=== PATIENT | male | born 1930 | race Caucasian/White ===

== ENCOUNTER 2018-08-29 18:10 | Inpatient (IN) | payer OTHER ==
--- NOTE | 2018-08-29 18:31 | EDPHY ---
HPI/HX/ROS/PE/MDM Narrative: CHIEF COMPLAINT: Shortness of breath, growing mass over neck HPI: The patient is an 87 y/o male arriving with his son complaining of shortness of breath related to a growing mass over his neck. He was diagnosed with metastatic colorectal cancer by biopsy that has been aggressively spreading around his neck over the last month. The patient and his care team in [place] initially determined he would start hospice, then there was discussion to proceed with palliative radiation treatment instead. No therapy has been started yet due to missed appointments and claustrophobia. His son moved him here from [place] three days ago to live with him permanently while undergoing treatment and/or hospice care. His son has already transferred records and scheduled an appointment with a local radiation oncologist to see "if there's anything radiation could do at this point." The mass has been growing and his son says "this thing has been growing dramatically over the last couple days" from "small golfball-sized lump" a few months ago that has now enlarged significantly and is over his larynx. The patient is having difficulty breathing and eating. His son reports he has only consumed about 500 calories in the last [address] in [place] last month showed no airway constriction. History obtained primarily from patient's son. REVIEW OF SYSTEMS: A comprehensive 10 system review of systems is otherwise negative aside from elements mentioned in the history of present illness. PMH: Metastatic colorectal cancer SOCIAL HISTORY: Lived independently in [place], [place], arrived here 3 days ago and now living with his son locally. PHYSICAL EXAM: General:Patient is alert, in no acute distress. ENT:Eyes are normal to inspection. ENT inspection normal. Neck: Enormous right anterior mass pushing trachea to the side. Respiratory:No respiratory distress. Breath sounds normal bilaterally. Cardiovascular: Regular rate and rhythm. Strong peripheral pulses. Normal cap refill. Abdomen:The abdomen is nontender to palpation. There are no peritoneal signs. Back: Normal to inspection. No tenderness to palpation. Skin: Normal color. No rash. Warm and dry. Extremities: Normal appearance. Full range of motion. Neuro: Oriented x3. Normal motor function. Normal sensory function. ED Course: This is an 87 y/o male with aggressive metastatic colorectal cancer with a rapidly growing mass over his neck that is now causing difficulty eating and breathing. He has not received treatment for this yet, though son is setting up palliative radiation treatment appointments. Plan for IV, labs, admission, and oncology consultation. 1L IV NS ordered. 183: Consulted with Dr. King, oncology. He will consult during admission. Spoke with hospitalist service. Dr. Lai accepts admission. - Data Points Laboratory Results: Laboratory Results 08/29/18 18:38 08/29/18 18:38 08/29/18 08/29/18 18:38 18:38 WBC 13.63 10^3/uL H 10^3/uL (3.80-9.50) RBC 4.61 10^6/uL 10^6/uL (4.40-6.38) Hgb 15.0 g/dL g/dL (13.7-17.5) Hct 45.0 % % (40.0-51.0) MCV 97.6 fL fL (81.5-99.8) MCH 32.5 pg pg (27.9-34.1) MCHC 33.3 g/dL g/dL (32.4-36.7) RDW 14.6 % % (11.5-15.2) Plt Count 237 10^3/uL 10^3/uL (150-400) MPV 9.9 fL fL (8.7-11.7) Neut % (Auto) 76.7 % H % (39.3-74.2) Lymph % (Auto) 10.9 % L % (15.0-45.0) [place] % (Auto) 6.7 % % (4.5-13.0) Eos % (Auto) 4.7 % % (0.6-7.6) Baso % (Auto) 0.6 % % (0.3-1.7) Nucleat RBC Rel Count 0.0 % % (0.0-0.2) Absolute Neuts (auto) 10.46 10^3/uL H 10^3/uL (1.70-6.50) Absolute Lymphs (auto) 1.48 10^3/uL 10^3/uL (1.00-3.00) Absolute Monos (auto) 0.91 10^3/uL H 10^3/uL (0.30-0.80) Absolute Eos (auto) 0.64 10^3/uL H 10^3/uL (0.03-0.40) Absolute Basos (auto) 0.08 10^3/uL 10^3/uL (0.02-0.10) Absolute Nucleated RBC 0.00 10^3/uL 10^3/uL (0-0.01) Immature Gran % 0.4 % % (0.0-1.1) Immature Gran # 0.06 10^3/uL 10^3/uL (0.00-0.10) Sodium 141 mEq/L mEq/L (135-145) Potassium 5.0 mEq/L mEq/L (3.3-5.0) Chloride 103 mEq/L mEq/L (97-110) Carbon Dioxide 27 mEq/l mEq/l (22-31) Anion Gap 11 mEq/L mEq/L (6-14) BUN 17 mg/dL mg/dL (7-23) Creatinine 1.1 mg/dL mg/dL (0.7-1.3) Estimated GFR > 60 Glucose 90 mg/dL mg/dL (70-100) Calcium 9.3 mg/dL mg/dL (8.5-10.4) Total Bilirubin 1.4 mg/dL mg/dL (0.1-1.4) Conjugated Bilirubin 0.3 mg/dL mg/dL (0.0-0.5) Unconjugated Bilirubin 1.1 mg/dL mg/dL (0.0-1.1) AST 56 IU/L IU/L (17-59) ALT 24 IU/L IU/L (21-72) Alkaline Phosphatase 109 IU/L IU/L (38-126) Total Protein 7.3 g/dL g/dL (6.3-8.2) Albumin 3.5 g/dL g/dL (3.5-5.0) Medications Given: Discontinued Medications Sodium Chloride (Ns) 1,000 mls @ 0 mls/hr IV EDNOW ONE; Wide Open PRN Reason: Protocol Stop: 08/29/18 18:45 Last Admin: 08/29/18 18:49 Dose: 1,000 mls General Time Seen by Provider: 08/29/18 18:17 Initial Vital Signs: Initial Vital Signs Temperature (C) 36.5 C 08/29/18 18:14 Heart Rate 99 08/29/18 18:14 Respiratory Rate 18 08/29/18 18:14 Blood Pressure 107/72 08/29/18 18:14 O2 Sat (%) 93 08/29/18 18:14 O2 Delivery Mode Room Air Allergies/Adverse Reactions: No Known Allergies Allergy (Unverified 08/29/18 18:14) Home Medications: Medication Instructions Recorded NK [No Known Home Meds] 08/29/18 Departure - Departure Disposition: [facility] Inpatient Acute Clinical Impression: Metastatic colorectal cancer, Neck mass Condition: Fair Report Scribed for: Gutierrez Mejía Report Scribed by: Darlene Jennings Date of Report: 08/29/18 Time of Report: 18:56 Physician Review and Approval Statement: Portions of this note were transcribed by an ED scribe. I personally performed the history, physical exam, and medical decision making; and confirm the accuracy of the information in the transcribed note.
[2018-08-29] MEDS ORDERED: NS 1,000 ML IV ONE (18:44)
[2018-08-29 18:51] LABS: PLATELET COUNT 237 10^3/uL (150-400)
[2018-08-29] MEDS ORDERED: ONDANSETRON 4 MG/2 ML VIAL IVP PRN (20:28)
[2018-08-29] MEDS ORDERED: HYDROCODONE/APAP 5/325 TAB PO PRN (20:28)
--- NOTE | 2018-08-29 20:39 | PDGENHP ---
History and Physical - Chief Complaint large neck mass, sob - History of Present Illness 87 yo M with PMH of metastatic colon cancer with mets to lung, kidney, small intestine and neck per son's report, here for concerns of rapidly growing neck mass. Son notes that he recently had his father move here from [place] as he had been doing poorly in [place]. He was diagnosed with the cancer apparently 1 year ago, and then 6 months ago diagnosed with metastasis. Son notes that his father was trying palliative radiation for the neck mass in [place] as there were concerns with it's size and proximity to the trachea, but unfortunately he was not able to tolerate the mask he had to wear and had significant anxiety and claustrophobia. Son notes that one week ago the mass appeared about 1/2 the size it is currently and also did not appear to be highly vascular as it does now. He notes his father has been working hard to breathe at times since getting to [place], he originally thought it was due to the elevation but when it continued after several days here he became more concerned that it was due to the neck mass. Patient himself is mainly complaining of being itchy and states that he wants to go 'meet my mother and ' who are both , and states that he is ready to . He does state that he is willing to meet with the oncologist and the radiation onc doctor to see if radiation might make him more comfortable, but then forgets that he said that and states he wants to leave. History Information - Allergies/Home Medication List Allergies/Adverse Reactions: No Known Allergies Allergy (Unverified 08/29/18 18:14) Home Medications: NK [No Known Home Meds] 08/29/18 [Last Taken Unknown] I have personally reviewed and updated: family history, medical history, social history, surgical history - Past Medical History cancer (metastatic colon cancer--mets to lungs, kidney, small intestine, neck per son) - Surgical History Reports: no pertinent surgical hx - Family History Positive for: non-pertinent - Social History Smoking Status: Never smoked Alcohol Use: None Drug Use: None Additional social history: recently moved here from [place], lives with son Review of Systems Review of Systems: ROS: 10pt was reviewed & negative except for what was stated in HPI & below Physical Exam Physical Exam: Temp Pulse Resp BP Pulse Ox 36.5 C 83 16 115/74 92 08/29/18 18:14 08/29/18 20:15 08/29/18 20:15 08/29/18 20:15 08/29/18 20:15 Constitutional: chronically ill appearing, uncomfortable Eyes: PERRL, anicteric sclera Ears, Nose, Mouth, Throat: moist mucous membranes, other (large, mostly left sided lobulated, vascular mass on neck, areas of skin breakdown ) Cardiovascular: regular rate and rhythym, no murmur, rub, or gallop, No edema Respiratory: no respiratory distress, no rales or rhonchi, other (no stridor) Gastrointestinal: normoactive bowel sounds, soft, non-tender abdomen Genitourinary: no bladder tenderness Skin: warm, other (scattered erythematous, maculopapular rash and excoriations) Musculoskeletal: full muscle strength, no muscle tenderness Neurologic: AAOx3 Psychiatric: encephalopathic, flat affect, poor memory Lab Data & Imaging Review 08/29/18 18:38 08/29/18 18:38 WBC 13.63 10^3/uL (3.80-9.50) H 08/29/18 18:38 RBC 4.61 10^6/uL (4.40-6.38) 08/29/18 18:38 Hgb 15.0 g/dL (13.7-17.5) 08/29/18 18:38 Hct 45.0 % (40.0-51.0) 08/29/18 18:38 MCV 97.6 fL (81.5-99.8) 08/29/18 18:38 MCH 32.5 pg (27.9-34.1) 08/29/18 18:38 MCHC 33.3 g/dL (32.4-36.7) 08/29/18 18:38 RDW 14.6 % (11.5-15.2) 08/29/18 18:38 Plt Count 237 10^3/uL (150-400) 08/29/18 18:38 MPV 9.9 fL (8.7-11.7) 08/29/18 18:38 Neut % (Auto) 76.7 % (39.3-74.2) H 08/29/18 18:38 Lymph % (Auto) 10.9 % (15.0-45.0) L 08/29/18 18:38 [place] % (Auto) 6.7 % (4.5-13.0) 08/29/18 18:38 Eos % (Auto) 4.7 % (0.6-7.6) 08/29/18 18:38 Baso % (Auto) 0.6 % (0.3-1.7) 08/29/18 18:38 Nucleat RBC Rel Count 0.0 % (0.0-0.2) 08/29/18 18:38 Absolute Neuts (auto) 10.46 10^3/uL (1.70-6.50) H 08/29/18 18:38 Absolute Lymphs (auto) 1.48 10^3/uL (1.00-3.00) 08/29/18 18:38 Absolute Monos (auto) 0.91 10^3/uL (0.30-0.80) H 08/29/18 18:38 Absolute Eos (auto) 0.64 10^3/uL (0.03-0.40) H 08/29/18 18:38 Absolute Basos (auto) 0.08 10^3/uL (0.02-0.10) 08/29/18 18:38 Absolute Nucleated RBC 0.00 10^3/uL (0-0.01) 08/29/18 18:38 Immature Gran % 0.4 % (0.0-1.1) 08/29/18 18:38 Immature Gran # 0.06 10^3/uL (0.00-0.10) 08/29/18 18:38 Sodium 141 mEq/L (135-145) 08/29/18 18:38 Potassium 5.0 mEq/L (3.3-5.0) 08/29/18 18:38 Chloride 103 mEq/L (97-110) 08/29/18 18:38 Carbon Dioxide 27 mEq/l (22-31) 08/29/18 18:38 Anion Gap 11 mEq/L (6-14) 08/29/18 18:38 BUN 17 mg/dL (7-23) 08/29/18 18:38 Creatinine 1.1 mg/dL (0.7-1.3) 08/29/18 18:38 Estimated GFR > 60 10/29/18 18:38 Glucose 90 mg/dL (70-100) 08/29/18 18:38 Calcium 9.3 mg/dL (8.5-10.4) 08/29/18 18:38 Total Bilirubin 1.4 mg/dL (0.1-1.4) 08/29/18 18:38 Conjugated Bilirubin 0.3 mg/dL (0.0-0.5) 08/29/18 18:38 Unconjugated Bilirubin 1.1 mg/dL (0.0-1.1) 08/29/18 18:38 AST 56 IU/L (17-59) 08/29/18 18:38 ALT 24 IU/L (21-72) 08/29/18 18:38 Alkaline Phosphatase 109 IU/L (38-126) 08/29/18 18:38 Total Protein 7.3 g/dL (6.3-8.2) 08/29/18 18:38 Albumin 3.5 g/dL (3.5-5.0) 08/29/18 18:38 Assessment & Plan Assessment: Metastatic colorectal cancer (Acute) Neck mass (Acute) 87 yo M with hx of metastatic colon cancer with large mass to neck presenting with sob # metastatic colon cancer with large neck mass: given size and location of mass concern for its proximity to trachea and great vessels of neck, at this time patient does not appear to have stridor or increased wob. He is willing to discuss possibility of palliative radiation, Dr. King of oncology has been consulted by ER and will discuss with patient and son in am. Patient has not had any imaging in several months per son and given rapid growth of neck mass, concern for overall progression--will obtain ct neck/chest/abdomen in am ( patient requesting deferral to am so he can sleep) # sob: likely due to above, lungs sound clear and no stridor but mass undoubtedly exerting pressure on trachea, not hypoxic, imaging in am as above # malnutrition: BMI of 16 and patients son notes that over the last 3 days he has likely only eaten a total of 500 calories, will ask dietary to consult # goals of care: son states that he would prefer his father be a FC if it were up to him, however patient clearly states he does not want to be intubated or resuscitated and son agrees to abide by his father's wishes. Discussed option of hospice and son states he has plans to meet with them as an OP. Patient new to my care. Care plan reviewed with ER doctor. Further hx obtained from patients son present at bedside. Old records requested.
[2018-08-29] MEDS: ACETAMINOPHEN 325 MG TAB PO PRN (22:07)
[2018-08-29] MEDS: diphenhydrAMINE 25 MG CAP PO PRN (22:07)
[2018-08-29] MEDS: MELATONIN 3 MG TAB PO SCH (22:07)
[2018-08-29] MEDS ORDERED: hydrOXYzine HCL 25 MG TAB PO ONE (23:38)
[2018-08-30 04:47] LABS: PLATELET COUNT 211 10^3/uL (150-400)
--- NOTE | 2018-08-30 08:40 | PDMN ---
Medical Necessity Medical necessity: MCG: [facility] oncology - pt with increasing difficulty breathing , poor appetite, met. colon ca with mets to lung, kidney, sm. intestine and neck - with progressive rapidly growing neck mass concern with proximity to trachea. oncology consult pend. - anticipate > 2 [place] ongoing med nec care, further eval and tx.
--- NOTE | 2018-08-30 08:59 | GCON ---
HISTORY OF PRESENT ILLNESS: The patient is an 87-year-old gentleman who carries a diagnosis of metastatic colon cancer. I have limited medical records , but per his son, he has metastasis to lung, kidney, small intestine, and neck. My understanding is he has had surgery on his primary a year or so ago.. He recently came from [place] to live with his son because he was doing poorly. The biggest issue is a rapidly growing neck mass. He came to the ER last night and was admitted. He is having some issues with breathing and has general pruritus. He has lost some weight, but is able to swallow. We were consulted to consider the issue of possible palliative radiation therapy to his neck. PAST MEDICAL HISTORY: Primarily positive for the colon cancer. FAMILY HISTORY: Noncontributory. SOCIAL HISTORY: He is a nonsmoker. REVIEW OF SYSTEMS: Positive for pruritus and some shortness of breath. PHYSICAL EXAMINATION: GENERAL: Today, he is an elderly male, but is ambulatory. VITAL SIGNS: Blood pressure 98/65, O2 saturation 90% on 2 L. He is afebrile. HEENT: He is not icteric. NECK: He has a very large, probably 8 x 6 cm mass involving the left side of his neck. There is a scab in the middle. LUNGS: Generally clear. CARDIAC: Unremarkable. ABDOMEN: Normal bowel sounds and is nontender. EXTREMITIES: No edema. LABORATORY DATA: White count is 11,000, hemoglobin 13.4, hematocrit 40.2, platelets 211,000. Chemistry panel is unremarkable. IMPRESSION: We have somewhat limited data, but history is consistent with colon cancer, probably metastasizing through the lymphatic system into the neck. There is a large neck mass, which has the potential to cause airway obstruction. I think it might be reasonable to consider palliative radiation therapy to this area, which may result in some shrinkage. 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 It might be worth trying nonsedating antihistamines as an initial trial. Skin moisturizing and Dermatology consultation may be indicated as well. I have discussed the case with Dr. Monahan of Radiation therapy. Certainly, a Palliative Care conference and a Hospice consult are indicated as well. /[id number]/MODL MTDD
--- NOTE | 2018-08-30 10:55 | ASMTCMCOM ---
CM Note CM Note Notes: Chart reviewed Patient is an 87 year old male admitted via ED with concerns of increasing size of neck mass and possible interference with airway. He has been diagnosed with cancer for one year. He recently vp product here from [place] to be with his son, Oncology saw and has ordered radiation therapy to help reduce the size of the mass. [facility] is seeing the son in consultation for consideration of palliative care versus hospice care. CM to follow for needs, Plan: TBD Date Signed: 08/30/2018 10:54 AM Electronically Signed By:Brianna Davis RN
[2018-08-30] MEDS ORDERED: PNEUMOC 13-VAL CONJ-DIP CRM/PF 0.5 ML SYR IM ONE (11:25)
--- NOTE | 2018-08-30 13:38 | ASMTCMCOM ---
CM Note CM Note Notes: Patient plan of care reviewed in rounds. This 87 year old gentleman recently relocated from [place] to the [place] area to live with his son. He is admitted with a diagnosis of colon cancer with metastatic disease to his lymph system resulting in a large neck mass. The concern is that the mass may be occlusive to his airway. He wishes to be a DNR. He per the son lost his in November. He has been pretty fatigued and mostly bed bound and the son has hired private care givers for assistance They also met with [facility] today and the patient is agreeable to 10 palliative radiation treatments, I also discussed HHC with the patient's son Davi as an additional layer of care. Plan: Likely to dc to son's home with HHC, palliative and private caregivers. Date Signed: 08/30/2018 01:37 PM Electronically Signed By:Brianna Davis RN
[2018-08-30] MEDS: oxyCODONE IR 5 MG TAB PO PRN (14:17)
--- NOTE | 2018-08-30 16:59 | HOSPPROG ---
Hospitalist Progress Note Assessment/Plan: * Massive neck mass - rapidly expanding - likely met from colon cancer -start XRT -currently no evidence for airway compromise * Metastatic colon cancer -CT neck/chest/abd/pelvis pending * Pruritis -oncology suspects paraneoplastic -anti-histamines * Poor po intake -start IVF Subjective: No new complaints, okay to swallow and breath Objective: Vital Signs Temp Pulse Resp BP Pulse Ox 36.6 C 85 20 101/81 H 99 08/30/18 16:01 08/30/18 16:01 08/30/18 16:01 08/30/18 16:01 08/30/18 16:01 Laboratory Results 08/30/18 04:20 08/30/18 04:20 08/29/18 08/30/18 08/31/18 05:59 05:59 05:59 Intake Total [address] King and Dr. serrato - patient would like to try XRT but did meet with [facility] this am CT chest/abd/pelvis and neck ordered and pending - Physical Exam Constitutional: no apparent distress, uncomfortable, other (very large massive neck mass protruding from right neck ) Cardiovascular: regular rate and rhythym, no murmur, rub, or gallop Respiratory: no respiratory distress, no rales or rhonchi, clear to auscultation Gastrointestinal: normoactive bowel sounds, soft, non-tender abdomen, no palpable masses Skin: no rashes or abrasions, no fluctuance, no induration Neurologic: AAOx3, sensation intact bilaterally Psychiatric: interacting appropriately, not anxious, not encephalopathic, thought process linear ICD10 Worksheet Patient Problems: Problems Problem Status Onset Metastatic colorectal cancer Acute Neck mass Acute
[2018-08-30] MEDS: 1/2 NS 1,000 ML IV SCH (17:25)
[2018-08-30] MEDS: MELATONIN 3 MG TAB PO SCH (21:44)
[2018-08-30] MEDS: diphenhydrAMINE 25 MG CAP PO PRN (23:25)
[2018-08-31] MEDS: 1/2 NS 1,000 ML IV SCH (06:17)
[2018-08-31] MEDS: diphenhydrAMINE 25 MG CAP PO PRN ×2 (06:20→21:16)
[2018-08-31] MEDS: oxyCODONE IR 5 MG TAB PO PRN (08:40)
[2018-08-31] MEDS: CETIRIZINE 10 MG TAB PO SCH ×2 (08:40→09:02)
--- NOTE | 2018-08-31 09:41 | SOAPPROG ---
SOAP Progress Note Assessment/Plan: Assessment: 1. metastatic colon ca with neck mass 2. pruritus Plan:Continue RT to neck mass, home or SNF with palliative care/hospice. continue antihistamines. 08/31/18 09:38 08/31/18 09:41 Subjective: Says he feels ok, a bit confused Objective: Vital Signs Temp Pulse Resp BP Pulse Ox 97.6 F 78 18 123/66 H 97 08/31/18 04:42 08/31/18 04:42 08/31/18 04:42 08/31/18 04:42 08/31/18 04:42 Laboratory Results 08/30/18 04:20 08/30/18 04:20 08/30/18 08/31/18 09/01/18 05:59 05:59 05:59 Intake Total 1200 200 Balance 1200 200 Physical Exam - Physical Exam General Appearance: alert, mild distress Neck: other (Large neck mass) Respiratory: lungs clear Skin: rash ICD10 Worksheet Patient Problems: Problems Problem Status Onset Metastatic colorectal cancer Acute Neck mass Acute
--- NOTE | 2018-08-31 11:00 | HOSPPROG ---
Hospitalist Progress Note Assessment/Plan: * Massive neck mass - rapidly expanding - likely met from colon cancer -start XRT -currently no evidence for airway compromise * Metastatic colon cancer -onc following -involve pall care with consideration of hospice * Pruritis -oncology suspects paraneoplastic -anti-histamines * Encephalopathy - unclear baseline, mild, no focal deficits -avoid centrally acting meds as able * Poor po intake -start IVF Dispo: Remain inpatient. Await PT/OT recs and XRT. Home vs SNF with pall care/ hospice. Subjective: Wondering where his son is. Still itchy. No trouble breathing. Seems confused Objective: Vital Signs Temp Pulse Resp BP Pulse Ox 36.4 C 78 18 123/66 H 97 08/31/18 04:42 08/31/18 04:42 08/31/18 04:42 08/31/18 04:42 08/31/18 04:42 Laboratory Results 08/30/18 04:20 08/30/18 04:20 08/30/18 08/31/18 09/01/18 05:59 05:59 05:59 Intake Total 1200 200 Balance 1200 200 - Physical Exam Constitutional: no apparent distress, appears nourished, not in pain Eyes: PERRL, anicteric sclera, EOMI Ears, Nose, Mouth, Throat: other (very large left lateral neck mass) Cardiovascular: regular rate and rhythym, no murmur, rub, or gallop Respiratory: no respiratory distress, no rales or rhonchi, clear to auscultation , other (no stridor) Gastrointestinal: normoactive bowel sounds, soft, non-tender abdomen, no palpable masses Genitourinary: no bladder fullness, no bladder tenderness, no renal bruits Skin: other (diffuse excoriations) Musculoskeletal: full muscle strength, no muscle tenderness, normal joint ROM Neurologic: AAOx3, sensation intact bilaterally Psychiatric: interacting appropriately, not anxious, not encephalopathic, thought process linear ICD10 Worksheet Patient Problems: Problems Problem Status Onset Metastatic colorectal cancer Acute Neck mass Acute
[2018-08-31] MEDS ORDERED: ALTEPLASE 2 MG VIAL IVP PRN (12:31)
[2018-08-31] MEDS ORDERED: IOPAMIDOL (ISOVUE-300) 100 ML BTL ONE (14:01)
[2018-08-31] MEDS: ACETAMINOPHEN 325 MG TAB PO PRN (21:16)
[2018-08-31] MEDS: MELATONIN 3 MG TAB PO SCH ×2 (21:16→23:23)
[2018-09-01] MEDS: diphenhydrAMINE 25 MG CAP PO PRN ×2 (00:48→05:56)
[2018-09-01] MEDS: ACETAMINOPHEN 325 MG TAB PO PRN (00:48)
--- NOTE | 2018-09-01 09:40 | HOSPPROG ---
Hospitalist Progress Note Assessment/Plan: * Massive neck mass - rapidly expanding, compatible with anitra mets from colon cancer -started palliative XRT, today day 01/08 -currently no evidence for airway compromise clinically or on imaging * Metastatic colon cancer -CT this admit shows extensive mets in lungs with endobronchial invasion, mediastinum liver with invasion of portal vein, mesenteric and RP nodes, L1 vertebrae without cord compromise, left adrenal, left inguinal nodes -onc following -attempting to get enrolled with [facility] * Pruritis -oncology suspects paraneoplastic -anti-histamines * RLL opacity - noted on CT, clinically not showing signs of infection, suspect aspiration -hold on antibiotics * Encephalopathy - per son he has dementia at baseline -avoid centrally acting meds as able * Poor po intake -continue IVF -nutrition following * 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 Need to discuss with son re: home situation. Likely unable to dc to SNF with ongoing need for XRT however if son able to adequately care for patient and get him to appointments, he may be able to dc home. Either way, we will attempt to set him up with hospice services. Subjective: Refusing most care yesterday. Calm this AM. Still endorsing come shortness of breath but no change from yesterday. No pain. No abdominal complaints. Objective: Vital Signs Temp Pulse Resp BP Pulse Ox 36.2 C 112 H 18 104/63 90 L 09/01/18 04:00 09/01/18 04:00 09/01/18 04:00 09/01/18 04:00 09/01/18 04:00 Laboratory Results 08/30/18 04:20 08/30/18 04:20 08/31/18 09/01/18 09/02/18 05:59 05:59 05:59 Intake Total 200 620 Output Total 1050 Balance 200 -430 - Physical Exam Constitutional: no apparent distress, appears nourished, not in pain Eyes: PERRL, anicteric sclera, EOMI Ears, Nose, Mouth, Throat: other (large left lateral neck mass) Cardiovascular: regular rate and rhythym, systolic murmur (loud systolic murmur loudest at RUSB without radiation), No edema Respiratory: no respiratory distress, clear to auscultation, other (no stridor) Gastrointestinal: normoactive bowel sounds, soft, non-tender abdomen, no palpable masses Skin: no rashes or abrasions, no fluctuance, no induration Musculoskeletal: full muscle strength, no muscle tenderness, normal joint ROM Neurologic: other (alert, not oriented ) Psychiatric: encephalopathic ICD10 Worksheet Patient Problems: Problems Problem Status Onset Metastatic colorectal cancer Acute Neck mass Acute
[2018-09-01] MEDS: CETIRIZINE 10 MG TAB PO SCH (10:09)
--- NOTE | 2018-09-01 10:20 | SOAPPROG ---
SOAP Progress Note Assessment/Plan: Assessment: 1. metastatic colon ca with neck mass, ct scans show very extensive metastatic disease 2. pruritus Plan:Continue RT to neck mass, home or SNF with palliative care/hospice. continue antihistamines. 08/31/18 09:38 08/31/18 09:41 09/01/18 10:19 Subjective: without new complaints, a bit confused Objective: Vital Signs Temp Pulse Resp BP Pulse Ox 97.6 F 95 18 112/72 97 09/01/18 08:00 09/01/18 08:00 09/01/18 08:00 09/01/18 08:00 09/01/18 08:00 Laboratory Results 08/30/18 04:20 08/30/18 04:20 08/31/18 09/01/18 09/02/18 05:59 05:59 05:59 Intake Total 200 620 Output Total 1050 Balance 200 -430 Physical Exam - Physical Exam General Appearance: mild distress Neck: other (large neck mass) Respiratory: normal breath sounds Cardiac/Chest: regular rate, rhythm Abdomen: normal bowel sounds ICD10 Worksheet Patient Problems: Problems Problem Status Onset Metastatic colorectal cancer Acute Neck mass Acute
[2018-09-01] MEDS: MELATONIN 3 MG TAB PO SCH (21:34)
[2018-09-01] MEDS: hydrOXYzine HCL 25 MG TAB PO PRN (21:35)
[2018-09-02] MEDS: ONDANSETRON DISINTEGRATING 4 MG TAB PO PRN (01:30)
--- NOTE | 2018-09-02 09:13 | SOAPPROG ---
SOAP Progress Note Assessment/Plan: Assessment: 1. metastatic colon ca with neck mass, ct scans show very extensive metastatic disease 2. pruritus 3. Dementia Plan:Continue RT to neck mass as long as pt and son desire, home or SNF with palliative care/hospice. continue antihistamines. 08/31/18 09:38 08/31/18 09:41 09/01/18 10:19 09/02/18 09:11 Subjective: Confused, irritated Objective: Vital Signs Temp Pulse Resp BP Pulse Ox 98.2 F 114 H 20 98/73 L 80 L 09/02/18 08:00 09/02/18 08:00 09/02/18 08:00 09/02/18 08:00 09/02/18 08:00 Laboratory Results 08/30/18 04:20 08/30/18 04:20 09/01/18 09/02/18 09/03/18 05:59 05:59 05:59 Intake Total 620 320 Output Total 1050 301 Balance -430 19 Physical Exam - Physical Exam General Appearance: mild distress Neck: other (mass) Respiratory: lungs clear, normal breath sounds Cardiac/Chest: regular rate, rhythm Abdomen: normal bowel sounds Skin: rash ICD10 Worksheet Patient Problems: Problems Problem Status Onset Metastatic colorectal cancer Acute Neck mass Acute
[2018-09-02] MEDS: CETIRIZINE 10 MG TAB PO SCH (12:01)
[2018-09-02] MEDS: guaiFENesin 600 MG TAB.ER PO SCH ×2 (12:05→22:26)
--- NOTE | 2018-09-02 13:58 | HOSPPROG ---
Hospitalist Progress Note Assessment/Plan: * Massive neck mass - rapidly expanding, compatible with anitra mets from colon cancer -undergoing palliative XRT -currently no evidence for airway compromise clinically or on imaging * Metastatic colon cancer -CT this admit shows extensive mets in lungs with endobronchial invasion, mediastinum liver with invasion of portal vein, mesenteric and RP nodes, L1 vertebrae without cord compromise, left adrenal, left inguinal nodes -had lengthy discussion with patient's mdpoa son this PM. he is agreeable to hospice. we are looking into assisted living as son unable to accomodate his father at home. son will discuss with CM and [facility] this afternoon. patient is dnr. 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 Plan for hospice at assisted living facility. Per [facility], they would be able to transport him to his remaining XRT appointments. Son is working with case management on setting this up. Subjective: Agitated. Apparently called 911 from his room phone. Pulled out IV. Refusing any treatments. Objective: Vital Signs Temp Pulse Resp BP Pulse Ox 36.6 C 114 H 24 H 103/70 84 L 09/02/18 12:00 09/02/18 12:00 09/02/18 12:00 09/02/18 12:00 09/02/18 12:00 Laboratory Results 08/30/18 04:20 08/30/18 04:20 09/01/18 09/02/18 09/03/18 05:59 05:59 05:59 Intake Total 620 320 Output Total 1050 301 Balance -430 19 - Physical Exam Eyes: PERRL, anicteric sclera, EOMI Ears, Nose, Mouth, Throat: other (large left lateral neck mass now with some drainage) Cardiovascular: systolic murmur, No JVD, No edema Respiratory: reduced air movement, other (intermittent tachypnea) Gastrointestinal: normoactive bowel sounds, soft, non-tender abdomen Genitourinary: no bladder fullness, no bladder tenderness, no renal bruits Skin: no rashes or abrasions, no fluctuance, no induration Musculoskeletal: full muscle strength, no muscle tenderness, normal joint ROM Psychiatric: encephalopathic, other (agitated) ICD10 Worksheet Patient Problems: Problems Problem Status Onset Metastatic colorectal cancer Acute Neck mass Acute
[2018-09-02] MEDS ORDERED: morphINE 0.4 MG/ML SCN ORAL SYR PO PRN (14:02)
[2018-09-02] MEDS ORDERED: OLANZapine DISINTEGR 10 MG TAB PO PRN (16:45)
[2018-09-02] MEDS: MELATONIN 3 MG TAB PO SCH (22:26)
[2018-09-03] MEDS: CETIRIZINE 10 MG TAB PO SCH (07:49)
[2018-09-03] MEDS: guaiFENesin 600 MG TAB.ER PO SCH ×3 (08:20→21:36)
--- NOTE | 2018-09-03 10:09 | SOAPPROG ---
SOAP Progress Note Assessment/Plan: Assessment: 1. Widely metastatic colon cancerr 2. L exophytic neck mass 3. pruritis. ?due to cancer, biliary obstruction 4. Dementia Plan: - plan for hospice - palliative RT to neck mass to resume Wednesday 09/05 (first fraction given 09/02) - benadryl cream for itching 25 min spent w/ pt and in coordination of care. 09/03/18 10:05 Subjective: itchy. denies SOB or pain. Objective: exam: chronically ill appearing large L neck mass breathing comfortably Lungs CTAB CV RRR no MGR ]Abd: +BS NT ND ext: no edema Skin: erhythematous patchy rash Neuro: alert but not oriented to place. Vital Signs Temp Pulse Resp BP Pulse Ox 36.4 C 116 H 16 113/72 88 L 09/03/18 07:43 09/03/18 07:43 09/03/18 07:43 09/03/18 07:43 09/03/18 07:43 Laboratory Results 08/30/18 04:20 08/30/18 04:20 09/02/18 09/03/18 09/04/18 05:59 05:59 04:59 Intake Total 320 525 Output Total 301 Balance 19 525 ICD10 Worksheet Patient Problems: Problems Problem Status Onset Metastatic colorectal cancer Acute Neck mass Acute
[2018-09-03] MEDS: DIPHENHYDRAMINE CREAM TP PRN ×3 (10:25→22:55)
--- NOTE | 2018-09-03 13:59 | ASMTCMCOM ---
CM Note CM Note Notes: CM spoke with MD, pt will dc to SNF with [facility], referral sent. P't s son Davi has spoken with [facility] but no decision has been made about SNF. DC Plan: TBD Date Signed: 09/03/2018 01:58 PM Electronically Signed By:Swathi Lozano RN
--- NOTE | 2018-09-03 14:36 | HOSPPROG ---
Hospitalist Progress Note Assessment/Plan: * Massive neck mass - rapidly expanding, compatible with anitra mets from colon cancer -undergoing palliative XRT, plan for 10 treatments -currently no evidence for airway compromise clinically or on imaging * Metastatic colon cancer -CT this admit shows extensive mets in lungs with endobronchial invasion, mediastinum liver with invasion of portal vein, mesenteric and RP nodes, L1 vertebrae without cord compromise, left adrenal, left inguinal nodes -had lengthy discussion with patient's mdpoa son and palliative care on 09/02. he is agreeable to hospice. he is looking into SNF as son unable to accommodate his father at home. son will discuss with CM and [facility]. patient is dnr. 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 Plan for hospice at SNF. Per [facility], they would be able to transport him to his remaining XRT appointments. Son is working with case management on setting this up. Subjective: Had ok night. Pretty sleepy today. Not having trouble breathing. Denies pain. Family (son) working on [facility] but none chosen yet. Objective: Vital Signs Temp Pulse Resp BP Pulse Ox 36.3 C 104 H 16 90/64 L 91 L 09/03/18 12:00 09/03/18 12:00 09/03/18 12:00 09/03/18 12:00 09/03/18 12:00 Laboratory Results 08/30/18 04:20 08/30/18 04:20 09/02/18 09/03/18 09/04/18 05:59 05:59 04:59 Intake Total 320 525 Output Total 301 Balance 19 525 - Physical Exam Eyes: PERRL, anicteric sclera, EOMI Ears, Nose, Mouth, Throat: moist mucous membranes, other (large left lateral neck mass) Cardiovascular: regular rate and rhythym, systolic murmur (loud systolic) Respiratory: no respiratory distress, other (no stridor) Gastrointestinal: normoactive bowel sounds, soft, non-tender abdomen, no palpable masses Genitourinary: no bladder fullness, no bladder tenderness, no renal bruits Skin: other (diffuse rash with excoriation) Musculoskeletal: full muscle strength, no muscle tenderness, normal joint ROM Neurologic: other (alert, not oriented) Psychiatric: encephalopathic ICD10 Worksheet Patient Problems: Problems Problem Status Onset Metastatic colorectal cancer Acute Neck mass Acute
[2018-09-03] MEDS: MELATONIN 3 MG TAB PO SCH (21:35)
[2018-09-04] MEDS: DIPHENHYDRAMINE CREAM TP PRN (01:33)
[2018-09-04] MEDS: ONDANSETRON DISINTEGRATING 4 MG TAB PO PRN (07:57)
[2018-09-04] MEDS: guaiFENesin 600 MG TAB.ER PO SCH ×2 (07:59→22:25)
[2018-09-04] MEDS: CETIRIZINE 10 MG TAB PO SCH (08:51)
--- NOTE | 2018-09-04 12:10 | SOAPPROG ---
SOAP Progress Note Assessment/Plan: * Massive neck mass - rapidly expanding, compatible with anitra mets from colon cancer -undergoing palliative XRT, plan for 10 treatments -currently no evidence for airway compromise clinically or on imaging * Widely metastatic colon cancer -CT this admit shows extensive mets in lungs with endobronchial invasion, mediastinum liver with invasion of portal vein, mesenteric and RP nodes, L1 vertebrae without cord compromise, left adrenal, left inguinal nodes -discussion with patient's mdpoa son, he is agreeable to hospice and he is still planning to look into SNF -he declines CM services and will contact hospice directly himself re possible inpt hospice (prefers to not interact with CM much as has bad interactions at other hospitals) -son requests labs, reasonable given very poor intake recently -prognosis likely weeks/months at best -son confirms that dad would not want a feeding tube (did not discuss IVF) * Pruritis/rash -oncology suspects paraneoplastic -anti-histamines prn * Hypoxia - intermittent, due to extensive lung mets -supplemental O2 as tolerates -oral morphine for air hunger * Encephalopathy - per son he has dementia at baseline, but clearly worsening -olanzapine prn for agitation * Poor po intake -nutrition following -see above, no feeding tube per son * 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 >25 mins spent with pt/son, revwd imaging/labs with son. No local PCP DNR Subjective: Sleeping most of day (I went to room twice, confirmed with RN). Son present in the PM. Has not looked at SNFs yet and does not want to discuss with CM. Will consider [facility] unit, he will call hospice. Says Father very clear prev after taking care of his . He would NOT want a feeding tube. However son worried re electrolytes/nutrition, requests labs tomorrow. Objective: Vital Signs Temp Pulse Resp BP Pulse Ox 97.4 F 97 16 121/78 H 94 09/04/18 08:17 09/04/18 08:17 09/04/18 08:17 09/04/18 08:17 09/04/18 08:17 Laboratory Results 08/30/18 04:20 08/30/18 04:20 09/03/18 09/04/18 09/05/18 12:59 11:59 11:59 Intake Total 200 Balance 200 - Time Spent With Patient Time Spent With Patient: 25 mins Physical Exam - Physical Exam General Appearance: other (sleeping, does arouse during exam) Neck: other (large mass L neck with some overlying skin discoloration) Respiratory: lungs clear, normal breath sounds, other (nl breathing effort, no sounds of obstruction or distress) Cardiac/Chest: regular rate, rhythm, systolic murmur Abdomen: normal bowel sounds, non-tender, soft ICD10 Worksheet Patient Problems: Problems Problem Status Onset Metastatic colorectal cancer Acute Neck mass Acute
[2018-09-04] MEDS: MELATONIN 3 MG TAB PO SCH (22:25)
[2018-09-05] MEDS: morphINE 10 MG/0.5 ML UDSYR PO PRN ×4 (00:24→22:55)
[2018-09-05 04:33] LABS: PLATELET COUNT 190 10^3/uL (150-400)
[2018-09-05] MEDS: DIPHENHYDRAMINE CREAM TP PRN ×2 (06:02→22:56)
--- NOTE | 2018-09-05 09:57 | HOSPPROG ---
Hospitalist Progress Note Assessment/Plan: 87 yo M w diffuse;y metastatic colon cancer Massive neck mass - rapidly expanding, compatible with anitra mets from colon cancer -undergoing palliative XRT, plan for 10 treatments -currently no evidence for airway compromise clinically or on imaging Metastatic colon cancer -CT this admit shows extensive mets in lungs with endobronchial invasion, mediastinum liver with invasion of portal vein, mesenteric and RP nodes, L1 vertebrae without cord compromise, left adrenal, left inguinal nodes he accepts hospice care -prognosis likely weeks/months at best Pruritis/rash -oncology suspects paraneoplastic -anti-histamines Hypoxia - intermittent, due to extensive lung mets -supplemental O2 as tolerates -oral morphine for air hunger Encephalopathy - per son he has dementia at baseline, clearly worsening -olanzapine prn for agitation Poor po intake -nutrition following 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 he accepts hospice care Objective: Vital Signs Temp Pulse Resp BP Pulse Ox 36.3 C 83 16 114/69 99 09/05/18 05:52 09/05/18 07:45 09/05/18 07:45 09/05/18 05:52 09/05/18 07:45 Laboratory Results 09/05/18 04:23 09/05/18 04:23 09/04/18 09/05/18 09/06/18 05:59 05:59 05:59 Intake Total 700 Balance 700 - Physical Exam Constitutional: no apparent distress, appears nourished Eyes: PERRL, anicteric sclera, other (large L neck mass) Ears, Nose, Mouth, Throat: moist mucous membranes, hearing normal Cardiovascular: regular rate and rhythym, systolic murmur Respiratory: no respiratory distress, no rales or rhonchi Gastrointestinal: normoactive bowel sounds, soft, non-tender abdomen Genitourinary: no bladder fullness, No izaguirre in urethra Skin: warm, normal color Musculoskeletal: full muscle strength, no muscle tenderness Neurologic: AAOx3, sensation intact bilaterally Psychiatric: interacting appropriately Lymph, Heme, Immunologic: no cervical LAD, no supraclavicular LAD ICD10 Worksheet Patient Problems: Problems Problem Status Onset Metastatic colorectal cancer Acute Neck mass Acute
[2018-09-05] MEDS: guaiFENesin 600 MG TAB.ER PO SCH ×2 (13:00→22:55)
[2018-09-05] MEDS: CETIRIZINE 10 MG TAB PO SCH (13:00)
[2018-09-05] MEDS: ONDANSETRON DISINTEGRATING 4 MG TAB PO SCH (18:30)
--- NOTE | 2018-09-05 20:26 | GCON ---
PALLIATIVE MEDICINE CONSULTATION DATE OF CONSULTATION: 09/05/2018 REFERRING PHYSICIAN: Austin Kerns MD CHIEF COMPLAINT: Dr. Austin Kerns requests a goals of care conversation. HISTORY OF PRESENT ILLNESS: This is an 87-year-old gentleman who has widely metastatic colon cancer. His metastatic sites include his liver, lymph nodes, lung, and he now has a paraneoplastic rash dif fusely on his skin. The mass on his neck has limited his ability to swallow. In addition, the patie nt seems to be experiencing nausea and therefore diminished oral intake. He has intermittent hypoxia . He has a lesion in his L1 vertebra that also puts him at risk for further decline. The metastasis in his lung shows endobronchial invasion, and the liver lesion has invasion into the portal vein. T he patient also suffers from dementia and has had significant confusion during his hospital stay. He is often calmed by his son. He has been started on olanzapine for agitation. The patient currently denies any pain to me. He also denies problems breathing. He states he feels he is doing well. Wh ile he has had minimal oral intake for the past couple of days, he believes he has been eating well. His son corrects him. He denies constipation to me. MEDICATIONS: He has needed 1 as-needed Zofran dose on September 04 at 8 a.m. and received one 5 mg d ose of Roxanol on September 05 around midnight. Other medications reviewed. REVIEW OF SYSTEMS: As indicated in the HPI. SOCIAL AND FAMILY HISTORY: As previously documented in his History and Physical. He is DNR/DNI. Hi s son is his medical power of software integration developer. The patient previously lived in [place], but his son moved him to [place]. ALLERGIES: None known. PHYSICAL EXAM: VITAL SIGNS: He has a blood pressure of 114/69, a heart rate of 100, a respiratory r ate of 18, and is currently saturating 95% on room air. He is afebrile with a temperature of 36.3 de grees Celsius. GENERAL: He is alert and oriented x1. I see him on 2 separate occasions today. He does not remember seeing me the first time. Overall pleasant and in no apparent distress. Easily re directed. SKIN: Diffuse papular erythematous rash on his trunk. He has a large mass on his left ne ck, approximately the size of a softball; however, appears significantly smaller than when I saw it l ast on palliative care rounds. SIGNIFICANT LABORATORY DATA: His albumin is 2.6 and his sodium is 143. His liver function tests are unremarkable as are his CBC and the rest of his chemistry panel. ASSESSMENT AND PLAN: This is an 87-year-old gentleman with widely metastatic colon cancer. He is st arting to decline more dramatically. His son reports he is sleeping essentially the whole day and ea ting and drinking minimally. I discussed his likely prognosis of weeks at this point given the patie nt's ability to still communicate and drink. Caloric intake was less important. However, the unknow n remained, how rapidly aggressive his cancer is. Given the extent of his liver and lung lesions as well as the mass on his , I did express surprise that the patient is doing as well as he cu rrently is. The son has noted significant improvement in the left neck mass after just 3 sessions of radiation; 10 are planned. However, if the son is not available to accompany the patient to radiati on he has not been able to get the radiation treatment. The plan is to have the patient attempt radi ation solo. If he is able to complete radiation independently, radiation treatments will be continue d until completed after the patient is discharged from [facility]. If he again is unab le to complete the radiation treatment solo, then these will be stopped. The son is agreeable with h aving the patient transferred to a detention facility and having hospice follow. Our hospice n niPaige, will meet the son in his father's room tomorrow (Wednesday) at 10:00 a.m. to complete admi ssion to hospice. Given the patient's solo radiation is planned for Wednesday afternoon, I suspect the patient will transfer to [facility] on Wednesday unless a late transfer can be arranged. With regard to patient's poor oral intake, I do believe he is experiencing persistent nausea. He may benefit from scheduled Zofran prior to meals, and I will write for this. Olanzapine is also known t o be an antiemetic and this will help not only with nausea but also with his encephalopathy and confu shaina. Please note that approximately 65 minutes was spent in this consult, all done in the hospital. /[id number]/MODL
[2018-09-05] MEDS: MELATONIN 3 MG TAB PO SCH (22:54)
[2018-09-06] MEDS: morphINE 10 MG/0.5 ML UDSYR PO PRN ×3 (09:15→21:24)
[2018-09-06] MEDS: ONDANSETRON DISINTEGRATING 4 MG TAB PO SCH ×3 (09:16→18:31)
[2018-09-06] MEDS: DIPHENHYDRAMINE CREAM TP PRN ×3 (09:22→21:28)
[2018-09-06] MEDS: CETIRIZINE 10 MG TAB PO SCH ×2 (09:52→10:28)
[2018-09-06] MEDS: guaiFENesin 600 MG TAB.ER PO SCH ×3 (09:52→21:23)
--- NOTE | 2018-09-06 14:03 | ASMTCMCOM ---
CM Note CM Note Notes: Patient plan of care reviewed. His son Davi would like patient to have Hospice in additional to SNF. Davi met with [facility] and this CM. He now understands there are financial implications for the patient to receive both services. Davi would prefer to elect to use his fathers medicare days at [facility] vs paying privately for his day to receive in facility hospice services at this time. Plan is to go to SNF Date Signed: 09/06/2018 02:02 PM Electronically Signed By:Brianna Davis RN
--- NOTE | 2018-09-06 14:18 | HOSPPROG ---
Hospitalist Progress Note Assessment/Plan: 87 yo M w metastatic colon cancer presenting with massive neck mass # Massive neck mass - rapidly expanding, compatible with anitra mets from colon cancer, significantly improved s/p xrt # Metastatic colon cancer-CT this admit shows extensive mets in lungs with endobronchial invasion, mediastinum liver with invasion of portal vein, mesenteric and RP nodes, L1 vertebrae without cord compromise, left adrenal, left inguinal nodes. 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 # IP status, will dc to SNF per son's request, hospice will follow Care plan reviewed with hospice MD and CM Subjective: no significant overnight events, patient somnolent and minimally responsive Objective: Vital Signs Temp Pulse Resp BP Pulse Ox 36.8 C 104 H 16 117/76 94 09/05/18 22:34 09/05/18 22:34 09/05/18 22:34 09/05/18 22:34 09/05/18 22:34 Laboratory Results 09/05/18 04:23 09/05/18 04:23 09/05/18 09/06/18 09/07/18 05:59 05:59 05:59 Intake Total 700 250 Output Total 450 Balance 700 -200 somnolent, minimally arousable anicteric neck mass decreased in size mildly erythematous op clear rrr no mrg cta b to ant exam soft nt nd no cce warm dry well perfused ICD10 Worksheet Patient Problems: Problems Problem Status Onset Metastatic colorectal cancer Acute Neck mass Acute
[2018-09-06] MEDS: MELATONIN 3 MG TAB PO SCH (21:24)
[2018-09-07] MEDS: morphINE 10 MG/0.5 ML UDSYR PO PRN
[2018-09-07] MEDS: hydrOXYzine HCL 25 MG TAB PO PRN ×2 (09:32→21:25)
[2018-09-07] MEDS: CETIRIZINE 10 MG TAB PO SCH (09:32)
[2018-09-07] MEDS: guaiFENesin 600 MG TAB.ER PO SCH ×3 (09:33→21:25)
[2018-09-07] MEDS: ONDANSETRON DISINTEGRATING 4 MG TAB PO SCH ×4 (09:33→17:40)
[2018-09-07] MEDS: DIPHENHYDRAMINE CREAM TP PRN ×2 (14:11→17:42)
--- NOTE | 2018-09-07 14:11 | HOSPPROG ---
Hospitalist Progress Note Assessment/Plan: 87 yo M w diffuse;y metastatic colon cancer Massive neck mass - rapidly expanding, compatible with anitra mets from colon cancer -undergoing palliative XRT, plan for 10 treatments -currently no evidence for airway compromise clinically or on imaging Metastatic colon cancer -CT this admit shows extensive mets in lungs with endobronchial invasion, mediastinum liver with invasion of portal vein, mesenteric and RP nodes, L1 vertebrae without cord compromise, left adrenal, left inguinal nodes he accepts hospice care -prognosis likely weeks/months at best Pruritis/rash -oncology suspects paraneoplastic -anti-histamines Hypoxia - intermittent, due to extensive lung mets -supplemental O2 as tolerates -oral morphine for air hunger Encephalopathy - per son he has dementia at baseline, clearly worsening -olanzapine prn for agitation Poor po intake -nutrition following 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 some complexity to plans and family dynamic Subjective: sleeping but arousable Objective: Vital Signs Temp Pulse Resp BP Pulse Ox 36.6 C 95 16 100/76 94 09/07/18 08:00 09/07/18 08:00 09/07/18 08:00 09/07/18 08:00 09/07/18 08:00 Laboratory Results 09/05/18 04:23 09/05/18 04:23 09/06/18 09/07/18 09/08/18 05:59 05:59 05:59 Intake Total 250 700 Output Total 450 100 Balance -200 600 - Physical Exam Constitutional: no apparent distress, appears nourished Eyes: PERRL, anicteric sclera Ears, Nose, Mouth, Throat: moist mucous membranes, hearing normal, other (very large neck mass) Cardiovascular: regular rate and rhythym, no murmur, rub, or gallop Respiratory: no respiratory distress, no rales or rhonchi Gastrointestinal: normoactive bowel sounds, soft, non-tender abdomen Genitourinary: no bladder fullness, No izaguirre in urethra Skin: warm, normal color Musculoskeletal: full muscle strength ICD10 Worksheet Patient Problems: Problems Problem Status Onset Metastatic colorectal cancer Acute Neck mass Acute
--- NOTE | 2018-09-07 14:35 | ASMTCMCOM ---
CM Note CM Note Notes: Plan of care reviewed in rounds. Spoke with Amy at [facility] and the patient's son Davi is not willing to cover the cost of inpatient and the SNF is unable to cover the costs of radiation therapy. The patient has had 6 radiation treatments out of 10 palliative sessions with significant shrinkage of tumor size. The son Davi with is the POA was debating between rehab versus hospice but upon learning medicare will not provide payment for both and a fee would be imposed for SNF he has elected to use rehab days. He is not willing to cover inpatient costs for patient to have medicare pay for outpatient radiation and wants to discuss the plan of care with the physician. Plan: TBD Date Signed: 09/07/2018 02:35 PM Electronically Signed By:Brianna Davis RN
[2018-09-07] MEDS: MELATONIN 3 MG TAB PO SCH (21:26)
[2018-09-08] MEDS: guaiFENesin 600 MG TAB.ER PO SCH ×2 (08:25→20:28)
[2018-09-08] MEDS: ONDANSETRON DISINTEGRATING 4 MG TAB PO SCH ×3 (08:25→18:22)
[2018-09-08] MEDS: CETIRIZINE 10 MG TAB PO SCH (08:25)
[2018-09-08] MEDS: ASCORBIC ACID 250 MG TAB PO SCH (08:25)
[2018-09-08] MEDS: morphINE 10 MG/0.5 ML UDSYR PO PRN ×2 (11:41→13:42)
[2018-09-08] MEDS: hydrOXYzine HCL 25 MG TAB PO PRN (13:36)
--- NOTE | 2018-09-08 18:01 | HOSPPROG ---
Hospitalist Progress Note Assessment/Plan: 87 yo M w diffuse;y metastatic colon cancer Massive neck mass - rapidly expanding, compatible with anitra mets from colon cancer -undergoing palliative XRT, has comepleted 05/10 treatments -currently no evidence for airway compromise clinically or on imaging Metastatic colon cancer -CT this admit shows extensive mets in lungs with endobronchial invasion, mediastinum liver with invasion of portal vein, mesenteric and RP nodes, L1 vertebrae without cord compromise, left adrenal, left inguinal nodes he accepts hospice care -prognosis likely weeks/months at best po intake: currently poor rec IVF Pruritis/rash -oncology suspects paraneoplastic -anti-histamines Hypoxia - intermittent, due to extensive lung mets -supplemental O2 as tolerates -oral morphine for air hunger Encephalopathy - per son he has dementia at baseline, clearly worsening -olanzapine prn for agitation Poor po intake -nutrition following 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 some complexity to plans and family dynamic 09/08: i called son to discuss plan of care. he is a good hospice candidate, but his son hasnt been available thus far this week i left a message to retrun call, if not today then tomorrow Subjective: alert, but not answering questions Objective: Vital Signs Temp Pulse Resp BP Pulse Ox 36.7 C 83 12 92/56 L 100 09/08/18 16:29 09/08/18 16:29 09/08/18 16:29 09/08/18 16:29 09/08/18 16:29 Laboratory Results 09/05/18 04:23 09/05/18 04:23 09/07/18 09/08/18 09/09/18 05:59 05:59 05:59 Intake Total 700 125 880 Output Total 100 300 100 Balance 600 -175 780 - Physical Exam Constitutional: no apparent distress, appears nourished Eyes: PERRL, anicteric sclera Ears, Nose, Mouth, Throat: moist mucous membranes, hearing normal Cardiovascular: regular rate and rhythym, no murmur, rub, or gallop Respiratory: no respiratory distress, no rales or rhonchi Gastrointestinal: normoactive bowel sounds, soft, non-tender abdomen Skin: warm, rash Musculoskeletal: No full muscle strength Neurologic: No AAOx3 ICD10 Worksheet Patient Problems: Problems Problem Status Onset Metastatic colorectal cancer Acute Neck mass Acute
[2018-09-08] MEDS: MELATONIN 3 MG TAB PO SCH (20:29)
[2018-09-08 20:36] VITALS: BP 106/65
[2018-09-09] MEDS: morphINE 10 MG/0.5 ML UDSYR PO PRN ×2 (07:29→09:33)
[2018-09-09] MEDS: guaiFENesin 600 MG TAB.ER PO SCH (08:00)
[2018-09-09] MEDS: ONDANSETRON DISINTEGRATING 4 MG TAB PO SCH (08:00)
[2018-09-09] MEDS: ASCORBIC ACID 250 MG TAB PO SCH (08:00)
[2018-09-09] MEDS: CETIRIZINE 10 MG TAB PO SCH (08:00)
--- NOTE | 2018-09-09 10:39 | ASMTCMCOM ---
CM Note CM Note Notes: Pt actively dying. Spoke with physician who felt patient not stable enough to transfer anywhere and will not be receiving palliative radiation today. Pt's son/MDPOA notified. Previously son had not wanted to pay for [facility] out of pocket with hospice. Pt unable to go home, so son requested pt sent to [facility] for SNF rehab at [facility] without hospice. Should pt recover, please read previous notes. [facility] unable to cover transportation for palliative radiation should pt be admitted as SNF short term rehab. CM to follow. Date Signed: 09/09/2018 10:38 AM Electronically Signed By:Sara Hanson
--- NOTE | 2018-09-09 16:01 | ASMTCMCOM ---
CM Note CM Note Notes: Pt . Date Signed: 09/09/2018 03:43 PM Electronically Signed By:Arabella Iyer
== END 2018-09-09 13:14 | disposition expired | DRG 843 ==
LOC: OBSVTOIN 19:19 → F1N 20:43
PROVIDERS: ADMIT Internal Medicine; ATTEND Internal Medicine
PROC: 02H633Z Insertion of Infusion Device into Right Atrium, Percutaneous Approach (ICD-10-PCS; principal; 2018-08-31)
DX: C79.89 Secondary malignant neoplasm of other specified sites (principal); G93.41 Metabolic encephalopathy; C18.9 Malignant neoplasm of colon, unspecified; E46 Unspecified protein-calorie malnutrition; I74.11 Embolism and thrombosis of thoracic aorta; C78.00 Secondary malignant neoplasm of unspecified lung; C79.00 Secondary malignant neoplasm of unspecified kidney and renal pelvis; C78.4 Secondary malignant neoplasm of small intestine; C78.7 Secondary malignant neoplasm of liver and intrahepatic bile duct; L29.9 Pruritus, unspecified; F03.90 Unspecified dementia, unspecified severity, without behavioral disturbance, psychotic disturbance, mood disturbance, and anxiety; E86.0 Dehydration; Z23 Encounter for immunization
CPT/HCPCS: 97165-GO; C1751; G8987-GO-CK; G8988-GO-CJ; J2405; Q9967